=== PATIENT | female | born 1970 | race Two or more races ===

== ENCOUNTER 2018-11-15 16:15 | Emergency (ER) | payer OTHER ==
[~2018-11-15] VITALS: Ht 157.5 cm; Wt 93.0 kg
[~2018-11-15 16:15] MED LIST: CATAFLAM50 MG PO; INTEGRA CAPSUL1 EACH; ORPH100T PO; VITAMIN K100 MCG
[2018-11-15] MEDS ORDERED: AVALIDE 300-121 EACH (16:38)
[2018-11-15] MEDS ORDERED: NORVASC10 MG (16:38)
== END 2018-11-15 19:24 | disposition home or self-care (01) ==
LOC: ER 16:15
DX: J45.998 Other asthma (principal)

== ENCOUNTER 2018-11-17 11:08 | Inpatient (IN) | payer OTHER ==
[~2018-11-17] VITALS: Ht 160 cm; Wt 113.4 kg
[~2018-11-17 11:08] MED LIST changes: +AVALIDE 300-121 EACH; +NORVASC10 MG
[2018-11-17] MEDS ORDERED: ALBUTEROL0.63 MG/3 (12:00)
[2018-11-17] MEDS ORDERED: BUDEO.25 (12:00)
== END 2018-11-30 07:49 | disposition home or self-care (01) | DRG 988 ==
LOC: ER 11:08 → SEC-K 11-18 06:40 → MEDI 11-18 06:40 → MEDJ 11-18 10:39 → MEDI 11-18 10:39
PROVIDERS: ADMIT Internal Medicine Cardiovascular Disease
PROC: 0J980ZZ Drainage of Abdomen Subcutaneous Tissue and Fascia, Open Approach (ICD-10-PCS; principal; 2018-11-28)
PROC: 3E0F7GC Introduction of Other Therapeutic Substance into Respiratory Tract, Via Natural or Artificial Opening (ICD-10-PCS; 2018-11-29)
DX: J45.30 Mild persistent asthma, uncomplicated (principal); L03.311 Cellulitis of abdominal wall; L98.498 Non-pressure chronic ulcer of skin of other sites with other specified severity; I10 Essential (primary) hypertension; M62.830 Muscle spasm of back; M94.0 Chondrocostal junction syndrome [Tietze]; E66.09 Other obesity due to excess calories; B95.4 Other streptococcus as the cause of diseases classified elsewhere

== ENCOUNTER 2018-12-19 08:24 | Inpatient (IN) | payer OTHER ==
[~2018-12-19] VITALS: Ht 160 cm; Wt 113.4 kg
[~2018-12-19 08:24] MED LIST changes: +ALBUTEROL0.63 MG/3; +BUDEO.25
== END 2018-12-24 09:03 | disposition home or self-care (01) | DRG 202 ==
LOC: MEDI 08:24
PROVIDERS: ADMIT Internal Medicine Cardiovascular Disease
PROC: 3E0F7GC Introduction of Other Therapeutic Substance into Respiratory Tract, Via Natural or Artificial Opening (ICD-10-PCS; principal; 2018-12-19)
PROC: 4A033R1 Measurement of Arterial Saturation, Peripheral, Percutaneous Approach (ICD-10-PCS; 2018-12-19)
DX: J45.41 Moderate persistent asthma with (acute) exacerbation (principal); L03.311 Cellulitis of abdominal wall; J44.1 Chronic obstructive pulmonary disease with (acute) exacerbation; M94.0 Chondrocostal junction syndrome [Tietze]; I10 Essential (primary) hypertension; E66.01 Morbid (severe) obesity due to excess calories; L98.491 Non-pressure chronic ulcer of skin of other sites limited to breakdown of skin

== ENCOUNTER 2020-01-03 13:57 | Emergency (ER) | payer OTHER ==
[~2020-01-03] VITALS: Ht 160 cm; Wt 113.4 kg
[2020-01-03] MEDS ORDERED: XOPENEX0.63 MG/3 (14:33)
== END 2020-01-03 16:43 | disposition home or self-care (01) ==
LOC: ER 13:57
DX: R53.81 Other malaise (principal); F41.0 Panic disorder [episodic paroxysmal anxiety]

== ENCOUNTER 2020-01-31 08:36 | Outpatient (CLI) | payer OTHER ==
[~2020-01-31 08:36] MED LIST changes: +XOPENEX0.63 MG/3
== END 2020-01-31 08:38 | disposition home or self-care (01) ==
LOC: NUCLEAR 08:36
PROVIDERS: ATTEND Internal Medicine Pulmonary Disease
DX: I27.89 Other specified pulmonary heart diseases (principal); R94.31 Abnormal electrocardiogram [ECG] [EKG]

== ENCOUNTER 2020-02-02 19:21 | Emergency (ER) | payer OTHER ==
[~2020-02-02] VITALS: Ht 160 cm; Wt 112.5 kg
== END 2020-02-02 20:00 | disposition home or self-care (01) ==
LOC: ER 19:21
DX: M79.642 Pain in left hand (principal); R60.0 Localized edema

== ENCOUNTER 2020-02-05 09:16 | Outpatient (CLI) | payer OTHER | END 2020-02-05 09:29 | disposition home or self-care (01) | LOC: NUCLEAR 09:16 | PROVIDERS: ATTEND Internal Medicine Pulmonary Disease | DX: I82.402 Acute embolism and thrombosis of unspecified deep veins of left lower extremity (principal) ==

== ENCOUNTER 2020-10-09 08:58 | Emergency (ER) | payer OTHER ==
[~2020-10-09] VITALS: Ht 160 cm; Wt 114.3 kg
== END 2020-10-09 14:45 | disposition home or self-care (01) ==
LOC: ER 08:58
DX: B34.9 Viral infection, unspecified (principal); R05 Cough; Z11.52 Encounter for screening for COVID-19

== ENCOUNTER 2021-06-26 06:00 | Day surgery (SDC) | payer OTHER | END 2021-06-26 09:05 | disposition home or self-care (01) | LOC: AMB-ENDOS 06:00 | PROVIDERS: ATTEND Surgery | DX: D13.1 Benign neoplasm of stomach (principal); K44.9 Diaphragmatic hernia without obstruction or gangrene; Z20.822 Contact with and (suspected) exposure to COVID-19 ==